=== PATIENT | male | born 1965 | race Asian ===

== ENCOUNTER 2017-06-26 19:20 | Emergency (ER) | payer OTHER ==
[~2017-06-26] VITALS: Ht 185.4 cm; Wt 116.0 kg
[2017-06-27] MEDS ORDERED: TETANUS, DIPHTHERIA, PERTUSSIS VAC/PF 0.5ML (>7YR OLD) IM ONE (00:45)
[2017-06-27] MEDS ORDERED: BACITRACIN ZINC OINT UDPKT TOP ONE (00:45)
[2017-06-27] MEDS ORDERED: KETOROLAC 30MG/ML VIAL IM ONE (00:45)
[2017-06-27] MEDS ORDERED: LIDOCAINE HCL 1% 20ML VIAL (Pyxis) INJ MC ONE (00:45)
[2017-06-27] MEDS ORDERED: IBUPROFEN 800MG TABLET PO ONE (01:15)
[2017-06-27 01:20] VITALS: BP 121/67
== END 2017-06-27 02:00 | disposition home or self-care (01) ==
LOC: ER 06-27 01:58
DX: S51.811A Laceration without foreign body of right forearm, initial encounter (principal); Z95.1 Presence of aortocoronary bypass graft; Y28.8XXA Contact with other sharp object, undetermined intent, initial encounter; Y93.89 Activity, other specified; Y92.89 Other specified places as the place of occurrence of the external cause
CPT/HCPCS: 12002; 73090; 90471; 90715; 99284; J1885; J3490; X7700; Z7610

== ENCOUNTER 2017-07-19 03:51 | Emergency (ER) | payer OTHER ==
[~2017-07-19] VITALS: Ht 185.4 cm; Wt 116.0 kg
[2017-07-19 04:04] VITALS: BP 136/85
== END 2017-07-19 04:30 | disposition home or self-care (01) ==
LOC: ER 03:51
DX: S41.111D Laceration without foreign body of right upper arm, subsequent encounter (principal); Z95.1 Presence of aortocoronary bypass graft; X58.XXXD Exposure to other specified factors, subsequent encounter; Y92.89 Other specified places as the place of occurrence of the external cause; Y99.8 Other external cause status
CPT/HCPCS: 99281; Z7610

== ENCOUNTER 2023-01-06 23:00 | Emergency (ER) | payer MEDICAID, OTHER ==
[~2023-01-06] VITALS: Ht 177.8 cm; Wt 125.0 kg
[2023-01-06] MEDS ORDERED: NITROGLYCERIN 0.4MG TABLET SL SL PRN (23:15)
[2023-01-06] MEDS ORDERED: ASPIRIN 81MG TABLET PO ONE (23:15)
[2023-01-06 23:31] LABS: BASOPHILS % 0.7 % (0.0-2.0); EOSINOPHILS % 1.9 % (0.0-5.0); HEMATOCRIT. 45.7 % (42.0-52.0); HEMOGLOBIN. 15.3 g/dL (14.0-18.0); LYMPHOCYTES % 46.9 % (20.0-50.0); MEAN CORPUSCULAR HEMOGLOBIN 30.3 pg (28.0-32.0); MEAN CORPUSCULAR VOLUME 90.6 fL (80.0-94.0); MEAN PLATELET VOLUME 7.6 fl (7.4-10.4); MONOCYTES % 9.6 % (2.0-8.0); NEUTROPHILS % 40.9 % (40.0-76.0); PLATELET 205 x1000/uL (130-400); RED BLOOD CELL COUNT 5.05 mill/uL (4.7-6.1); RED CELL DISTRIBUTION WIDTH 13.2 % (11.6-14.6)
[2023-01-06 23:35] LABS: CHLORIDE 107 mEq/L (98-107)
[2023-01-07] MEDS ORDERED: FUROSEMIDE 40MG/4ML VIAL IVP ONE (00:15)
[2023-01-07] MEDS ORDERED: POTASSIUM CHLORIDE 20MEQ TABLET SR PO ONE (00:15)
[2023-01-07 02:00] VITALS: BP 126/75
== END 2023-01-07 02:05 | disposition home or self-care (01) ==
LOC: ER 23:00 → CANBEDREQ 01-07 08:51
DX: R07.89 Other chest pain (principal)
CPT/HCPCS: 36415; 71045; 80053; 84484; 85025; 87426; 93005; 96374; 99285; C9803; J1940; Z7610

== ENCOUNTER 2025-08-28 08:30 | Emergency (ER) | payer OTHER, MEDICAID ==
[~2025-08-28] VITALS: Ht 185.4 cm; Wt 87.0 kg
[2025-08-28 08:32] VITALS: O2SAT 98
[2025-08-28] MEDS: BACITRACIN ZINC OINT UDPKT TOP ONE (10:33)
[2025-08-28 10:44] VITALS: BP 147/82; PULSE 94; RESP 16; TEMP 37; O2SAT 100
== END 2025-08-28 10:47 | disposition home or self-care (01) ==
LOC: ER 08:30
DX: S80.819A Abrasion, unspecified lower leg, initial encounter (principal); S80.211A Abrasion, right knee, initial encounter; V49.9XXA Car occupant (driver) (passenger) injured in unspecified traffic accident, initial encounter; Y92.410 Unspecified street and highway as the place of occurrence of the external cause; Y93.89 Activity, other specified; Y92.89 Other specified places as the place of occurrence of the external cause; Y99.8 Other external cause status
CPT/HCPCS: 99283